=== PATIENT | male | born 1995 | race Caucasian/White ===

== ENCOUNTER 2023-06-24 16:00 | Emergency (ER) | payer BC ==
[2023-06-24 17:33] VITALS: BP 142/98; PULSE 74
== END 2023-06-24 16:42 | disposition home or self-care (01) ==
LOC: LL.ED 16:00
DX: T20.20XA Burn of second degree of head, face, and neck, unspecified site, initial encounter (principal); Z88.0 Allergy status to penicillin; X08.8XXA Exposure to other specified smoke, fire and flames, initial encounter
CPT/HCPCS: 99283